=== PATIENT | female | born 1995 | race Caucasian/White ===

== ENCOUNTER 2024-08-03 11:04 | Day surgery (SDC) | payer OTHER ==
[~2024-08-03] VITALS: Ht 154.9 cm; Wt 68.5 kg
[~2024-08-03 11:04] MED LIST: TIRZ10PE3 SQ; TIRZ12.53 SC
[2024-08-03] MEDS ORDERED: NS (Normal Saline) 0.9% 1,000 ML IV SCH ×2 (11:40→15:05)
[2024-08-03] MEDS: LR 1,000 ML IV SCH (11:58)
[2024-08-03] MEDS ORDERED: propofoL 200 MG/20 ML VIAL As Ordered ONE (14:05)
[2024-08-03] MEDS ORDERED: KETOROLAC 60MG 2ML VIAL As Ordered ONE (14:06)
[2024-08-03] MEDS ORDERED: ONDANSETRON 4MG 2ML VIAL As Ordered ONE (14:06)
[2024-08-03] MEDS ORDERED: LIDOCAINE 2% 100MG/5ML SDV (FOR ANES.) As Ordered ONE (14:06)
[2024-08-03] MEDS ORDERED: fentaNYL 100 MCG/2 ML INJECTION As Ordered ONE (14:08)
[2024-08-03] MEDS ORDERED: MIDAZOLAM INJ 2MG/2ML VIAL As Ordered ONE (14:08)
[2024-08-03] MEDS ORDERED: ROCURONIUM BROMIDE 50MG/5ML VIAL As Ordered ONE (14:37)
[2024-08-03] MEDS ORDERED: SUGAMMADEX SODIUM 500 MG/5 ML VIAL (BRIDION) As Ordered ONE (14:37)
[2024-08-03] MEDS ORDERED: fentaNYL 100 MCG/2 ML INJECTION IV PRN (15:05)
[2024-08-03] MEDS ORDERED: ONDANSETRON 4MG 2ML VIAL IV PRN (15:05)
[2024-08-03] MEDS: oxyCODONE 5MG TAB PO PRN (15:22)
[2024-08-03] MEDS: HYDROMORPHONE HCL 0.5 MG/ 0.5 ML SYRINGE IV PRN (15:38)
[2024-08-03 16:15] VITALS: BP 122/75; TEMP 98.2; O2SAT 97
[2024-08-03] MEDS ORDERED: HYDROcodone/APAP LIQUID 7.5-325MG 15ML UDC (LORTAB ELIXIR) PO PRN (16:50)
[2024-08-03] MEDS ORDERED: LR 1,000 ML IV SCH (16:50)
== END 2024-08-03 16:44 | disposition home or self-care (01) ==
LOC: M SDC 11:04
PROVIDERS: ATTEND Otolaryngology
DX: J35.03 Chronic tonsillitis and adenoiditis (principal); J30.1 Allergic rhinitis due to pollen; Z79.85 Long-term (current) use of injectable non-insulin antidiabetic drugs
CPT/HCPCS: 42821; 81025; 88302; J0665; J1100; J1171; J2250; J2405; J3010